=== PATIENT | female | born 1950 | race Caucasian/White ===

== ENCOUNTER 2016-05-30 13:36 | Emergency (ER) | payer OTHER, MEDICARE ==
[~2016-05-30] VITALS: Ht 165.1 cm; Wt 78.9 kg
[2016-05-30] MEDS ORDERED: TETANUS-DIPTH-ACEL PERTUSSIS 0.5ML SYRG IM ONE (16:15)
[2016-05-30] MEDS ORDERED: NALBUPHINE HCL 10 MG/1ml INJECTION IM ONE (16:15)
[2016-05-30] MEDS ORDERED: BACITRACIN-POLYMYXIN B TOPICAL OINT UD TOP ONE (17:53)
[2016-05-30 18:51] VITALS: BP 135/84
== END 2016-05-30 19:57 | disposition home or self-care (01) ==
LOC: ER 14:01
DX: S42.92XA Fracture of left shoulder girdle, part unspecified, initial encounter for closed fracture (principal); S82.031A Displaced transverse fracture of right patella, initial encounter for closed fracture; Z23 Encounter for immunization; W01.0XXA Fall on same level from slipping, tripping and stumbling without subsequent striking against object, initial encounter; Y93.89 Activity, other specified; Y99.9 Unspecified external cause status; Y92.89 Other specified places as the place of occurrence of the external cause
CPT/HCPCS: 29105; 29505; 73030; 73562; 90471; 90715; 96372; 99284; J2300

== ENCOUNTER 2018-06-11 17:05 | Emergency (ER) | payer OTHER ==
[~2018-06-11] VITALS: Ht 165.1 cm; Wt 76.2 kg
[~2018-06-11 17:05] MED LIST: CEPH-37 PO; IBUP600T27 PO; RIVA20TA PO
[2018-06-11 17:07] VITALS: BP 151/91
== END 2018-06-11 20:44 | disposition left against medical advice (07) ==
LOC: ER 17:09
DX: R07.9 Chest pain, unspecified (principal); Z53.21 Procedure and treatment not carried out due to patient leaving prior to being seen by health care provider
CPT/HCPCS: 93005